=== PATIENT | male | born 1985 | race Caucasian/White ===

== ENCOUNTER 2020-10-15 16:20 | Emergency (ER) | payer BC ==
[2020-10-15 16:50] VITALS: BMI 23.7
[2020-10-15 18:54] LABS: BASO % 0.4 % (0-2.0); EOS % 0.5 % (0-4.5); HEMATOCRIT 45.5 % (35.4-49); HEMOGLOBIN 15.7 GM/dL (11.7-16.9); LYMPH % 16.6 % (8-40); MCH 31.2 pg (25.7-33.7); MCHC 34.6 g/dl (32.0-35.9); MEAN CELL VOLUME 90.1 fl (80-96); MEAN PLT VOLUME 7.5 fl (7.5-11.1); MONO % 9.3 % (3.8-10.2); NEUT % 73.2 % (42.8-82.8); PLATELET COUNT 246 K/MM3 (134-434); RBC 5.05 M/mm3 (4.00-5.60); RDW 12.7 % (11.9-15.9); WHITE BLOOD COUNT 7.7 K/mm3 (4.0-10.0)
[2020-10-15 19:20] LABS: ALBUMIN 4.4 g/dl (3.4-5.0); BLOOD UREA NITROGEN 12.8 mg/dL (7-18); CALCIUM 9.2 mg/dL (8.5-10.1)
[2020-10-15 19:23] LABS: CREATININE 0.7 mg/dL (0.55-1.3)
[2020-10-15 19:25] LABS: BILIRUBIN,TOTAL 0.6 mg/dL (0.2-1); TOT PROT 7.6 g/dl (6.4-8.2)
[2020-10-15] MEDS ORDERED: ALPRAZolam 0.25 MG TABLET PO ONE (20:05)
[2020-10-15] MEDS ORDERED: ALPRAZolam 0.25 MG TABLET ONE (20:12)
[2020-10-15 20:41] VITALS: BP 126/82; PULSE 82
[2020-10-15 20:42] VITALS: TEMP 98.7
== END 2020-10-15 20:48 | disposition home or self-care (01) ==
LOC: JER 16:20
DX: R00.2 Palpitations (principal)
CPT/HCPCS: 36415; 80053; 84439; 84443; 85025; 93005; 93010; 99284-25